=== PATIENT | female | born 1960 | race Caucasian/White ===

== ENCOUNTER 2017-05-14 21:38 | Emergency (ER) | payer SELFPAY ==
[~2017-05-14] VITALS: Ht 165.1 cm; Wt 65.0 kg
[~2017-05-14 21:38] MED LIST: COLA100C PO; HYDR-2768 PO; HYDR-3533 PO; NICO21T T-DERMAL; ZOFR4TAB3 PO
[2017-05-14 21:39] VITALS: BP 182/89; PULSE 89; RESP 16; TEMP 97.6; O2SAT 95
[2017-05-14] MEDS ORDERED: HYDR-3516 PO (22:00)
[2017-05-14] MEDS ORDERED: CYCL10TA PO (22:00)
[2017-05-14] MEDS ORDERED: NAPROXEN 500 MG TAB PO ONE (22:00)
[2017-05-14] MEDS ORDERED: ACETAMINOPHEN/HYDROcodone 325 MG/5 MG TAB PO ONE (22:00)
[2017-05-14] MEDS ORDERED: DICL75TA PO (22:00)
[2017-05-14] MEDS ORDERED: CYCLOBENZAPRINE HCL 10 MG TAB PO ONE (22:00)
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
== END 2017-05-14 22:52 | disposition home or self-care (01) ==
LOC: NEPE 21:38
DX: M54.9 Dorsalgia, unspecified (principal); G89.29 Other chronic pain; M54.30 Sciatica, unspecified side; I10 Essential (primary) hypertension; F17.200 Nicotine dependence, unspecified, uncomplicated; Z88.0 Allergy status to penicillin; Z79.899 Other long term (current) drug therapy
CPT/HCPCS: 99284

== ENCOUNTER 2017-09-18 01:11 | Emergency (ER) | payer OTHER ==
[~2017-09-18 01:11] MED LIST changes: +CYCL10TA PO; +DICL75TA PO; +HYDR-3516 PO
[2017-09-18] MEDS ORDERED: KETOROLAC TROMETHAMINE 30 MG/ML (IVP) VIAL IV PUSH ONE (01:30)
[2017-09-18] MEDS ORDERED: ONDANSETRON HCL 4 MG/2 ML VIAL IV PUSH ONE (01:30)
[2017-09-18] MEDS ORDERED: MORPHINE SULFATE 4 MG/ML INJ IV PUSH ONE (01:30)
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
[2017-09-18] MEDS ORDERED: CYCL10TA PO (02:12)
[2017-09-18] MEDS ORDERED: IBUP-232 PO (02:12)
[2017-09-18 02:15] VITALS: BP 221/103; PULSE 88; RESP 20; O2SAT 98
[2017-09-18 02:16] VITALS: RESP 20
[2017-09-18] MEDS ORDERED: AMLO5 PO (02:20)
[2017-09-18] MEDS ORDERED: amLODIPine BESYLATE 5 MG TAB PO ONE (02:30)
[2017-09-18 03:13] VITALS: BP 186/90
== END 2017-09-18 03:18 | disposition home or self-care (01) ==
LOC: PHED 01:11
DX: M54.2 Cervicalgia (principal); M54.5 Low back pain; V43.92XA Unspecified car occupant injured in collision with other type car in traffic accident, initial encounter; I10 Essential (primary) hypertension; F17.200 Nicotine dependence, unspecified, uncomplicated; Z88.0 Allergy status to penicillin
CPT/HCPCS: 72100; 72125; 96374; 96375; 99285; J1885; J2270; J2405